=== PATIENT | female | born 1970 | race Asian ===

== ENCOUNTER → 2016-08-17 | Outpatient (CLI) | payer BC ==
[~2016-08-17] MED LIST: ALPR-411 PO; ESCI10TA17 PO; HYDR-5688 PO; METH500T37 PO
== END | disposition home or self-care (01) ==
LOC: C.PAPS 15:29
PROVIDERS: ATTEND Obstetrics & Gynecology
DX: Z01.419 Encounter for gynecological examination (general) (routine) without abnormal findings (principal)

== ENCOUNTER → 2016-09-12 | Outpatient (CLI) | payer BC ==
--- NOTE | 2016-09-12 13:03 | MAMMOGRAPHY REPORT ---
BILATERAL DIGITAL DIAGNOSTIC MAMMOGRAM TOMOSYNTHESIS WITH CAD AND TARGETED BILATERAL ULTRASOUND: 08/23 CLINICAL HISTORY: 46-year-old woman who presented with intermittent swelling and uncomfortable feeli ng of the left axilla. There is a palpable and visible lump. Family history of breast cancer = mot her. Also due for annual bilateral screening mammography. TECHNIQUE: Bilateral breast tomosynthesis in addition to standard 2D mammography was performed. Curr ent study was also evaluated with a Computer Aided Detection (CAD) system. COMPARISON: Comparison is made to exam dated: 03/19/2013 mammogram - [facility]. BREAST COMPOSITION: The tissue of both breasts is heterogeneously dense, which may obscure small ma sses. FINDINGS: A triangular skin palpable marker overlies the left axilla, denoting the visible and palpa ble tender lump pointed out by the patient. In the area of concern within the left axilla, there is glandular tissue that is mammographically normal in appearance. No obvious architectural distortio n or mass. No suspicious microcalcifications. No other suspicious mass, focal area of distortion o r microcalcifications are seen throughout the left breast. There is a questionable area of architectural distortion in the superior posterior right breast, onl y seen on the MLO tomosynthesis images (slice 40-42) , for which an additional spot compression MLO tomosynthesis image was obtained. The area of questionable distortion is still equivocal with the a dditional view and further evaluation with ultrasound was performed. No obvious mass, other area of architectural distortion or suspicious microcalcifications are seen in the right breast. Targeted ultrasound was performed in the area of swelling and uncomfortable sensation within the lef t axilla, and also throughout the superior right breast. In the area of concern, sonographically no rmal tissue is seen without a suspicious solid or cystic mass. Throughout the right superior breast , a few scattered benign anechoic simple cysts are identified, incidentally. No focal area of archi tectural distortion or suspicious solid or cystic mass is seen. IMPRESSION: ACR BI-RADS CATEGORY 0: INCOMPLETE EVALUATION: NEED ADDITIONAL IMAGING EVALUATION, TAR GETED ULTRASOUND ACR BI-RADS CATEGORY 0: INCOMPLETE EVALUATION: NEED ADDITIONAL IMAGING EVALUATION 1. The palpable swelling in the left axilla may be secondary to accessory breast tissue. No suspic ious mass, suspicious lymphadenopathy or evidence of malignancy is identified. Clinical follow-up i s recommended, as biopsy of a clinically suspicious mass should not be precluded by negative imaging . 2. There is a questionable area of architectural distortion in the superior posterior right breast, only seen on the MLO view, without suspicious sonographic correlate. Given the dense breasts and s aston family history of breast cancer, further evaluation with a breast MRI is recommended to assess for any suspicious enhancing mass in that location. These results and recommendations were discussed with the patient at the time of the exam. Approximately 10% of breast cancers are not detected with mammography. A negative mammographic repor t should not delay biopsy if a clinically suggestive mass is present. Consuelo Simental M.D. ay/:09/12/2016 12:37:37 Cutlery Grinder: Melinda Trinidad, [facility] letter sent: Addl Imaging 0 BI-RADS Code: ACR BI-RADS Category 0: Incomplete Evaluation: Need Additional Imaging Evaluation Ul trasound BI-RADS: ACR BI-RADS Category 0: Incomplete Evaluation: Need Additional Imaging Evaluation
== END | disposition home or self-care (01) ==
LOC: C.MAMM 08:15
PROVIDERS: ATTEND Obstetrics & Gynecology
DX: R22.32 Localized swelling, mass and lump, left upper limb (principal); Z80.3 Family history of malignant neoplasm of breast; R92.8 Other abnormal and inconclusive findings on diagnostic imaging of breast

== ENCOUNTER → 2016-10-04 | Outpatient (CLI) | payer BC ==
[~2016-10-04] MED LIST changes: +GADAVIST IV PRN
--- NOTE | 2016-10-05 08:20 | MAMMOGRAPHY REPORT ---
BREAST MRI OF BOTH BREASTS : 10/04/2016 CLINICAL HISTORY: Possible architectural distortion in the superior posterior right breast only seen on the MLO view, no sonographic correlate. Patient has a personal history of dense breasts and stron g family history of breast cancer. COMPARISON: Comparison is made to exams dated: 03/19/2013 mammogram, 09/12/2016 mammogram, and 017 ultrasound - [facility]. TECHNIQUE: Using a 1.5 Tania magnet and dedicated breast coil, multisequence axial images were obtain ed through the breasts. After uneventful IV administration of 6.5 mL of Gadavist, dynamic multiphase contrast-enhanced axial images, and sagittal postcontrast were obtained. Temporal subtraction axial images and 3-D MIP images are provided. Everything was then reviewed on a 3-D workstation, [employer]. FINDINGS: Right breast: There is moderate to marked background parenchymal enhancement, with numerous scattered foci of enhancement throughout the entire right breast. This limits the sensitivity for detection o f suspicious non-mass enhancement. There are a few rim-enhancing cysts. No suspicious spiculated or irregular enhancing mass, definite non-mass enhancement, focal area of architectural distortion or s uspicious kinetics are seen within the right breast. There is no skin thickening or nipple retractio n. In particular, no definite suspicious enhancement to correlate with the questionable area of arch itectural distortion seen on recent mammography, therefore this finding is considered benign, most li kevin representing normal overlapping tissue. No suspicious right axillary lymphadenopathy. Left breast: There is moderate to marked background parenchymal enhancement, with numerous scattered foci of enhancement throughout the entire left breast. This limits the sensitivity for detection of non-mass enhancement. However, 2 discrete masses are identified. The first is oval and circumscribe d in the 12:00 middle to posterior left breast (sagittal page 23/120 and axial page 61/124). This de monstrates persistent kinetics, is T2 iso-to hyperintense and there is a suggestion of nonenhancing i nternal septae. This most likely represents a fibroadenoma, however, second look ultrasound is recom mended. A second, similar appearing circumscribed enhancing mass is identified in the 8:00 middle to anterior left breast (sagittal page 33/120 and axial page 98/124). This also demonstrates a thin no nenhancing internal septum, and is T2 iso-to hyperintense. The kinetics are mixed persistent and jorge teau. This also most likely represents a benign fibroadenoma but second look ultrasound is recommend ed. No suspicious spiculated or irregular enhancing mass or definite non-mass enhancement is identif ied in the left breast. No focal area of architectural distortion or suspicious kinetics. No suspic ious left axillary lymphadenopathy. IMPRESSION: ACR BI-RADS CATEGORY 0: INCOMPLETE EVALUATION: NEED ADDITIONAL IMAGING EVALUATION 1. No suspicious enhancing mass or other suspicious finding is identified in the superior posterior right breast to correlate with the questionable architectural distortion seen mammographically. This most likely represented overlapping fibrolinear markings and is considered benign. Overall, no MRI evidence of malignancy in the right breast. 2. 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 Howeve r, targeted second look ultrasound is recommended. At the time of second look ultrasound, based on s onographic appearance, could consider serial follow-up examinations versus core needle biopsy (45 min utes). The patient will be called to schedule an appointment. Consuelo Simental M.D. ay/:10/04/2016 22:45:33 Room Attendants: aws developer, [facility] letter sent: Addl Imaging 0 BI-RADS Code: ACR BI-RADS Category 0: Incomplete Evaluation: Need Additional Imaging Evaluation
== END | disposition home or self-care (01) ==
LOC: C.MRI 11:08
PROVIDERS: ATTEND Obstetrics & Gynecology
DX: R92.2 Inconclusive mammogram (principal); N63 Unspecified lump in breast

== ENCOUNTER → 2016-10-20 | Outpatient (CLI) | payer BC ==
[~2016-10-20] MED LIST changes: -GADAVIST IV PRN
--- NOTE | 2016-10-20 14:35 | MAMMOGRAPHY REPORT ---
SECONDLOOK ULTRASOUND OF LEFT BREAST: 10/20/2016 CLINICAL HISTORY: Two left breast masses seen on recent breast MRI, for which second look ultrasound was recommended. COMPARISON: Comparison is made to exams dated: 09/12/2016 ultrasound, 09/12/2016 mammogram, and 2012 mammogram - [facility]. TECHNIQUE: Real-time targeted ultrasound of the left breast was performed. FINDINGS: Real-time, high-resolution targeted ultrasound was performed of the area of the enhancing masses seen on breast MRI, in the left 12 to 1:00 breast and left 7 to 8:00 breast. In the left 7:00 breast, 3 cm from the nipple, there is an oval circumscribed hypoechoic parallel 7 x 4 x 6 mm mass. This corresponds well with one of the enhancing circumscribed masses seen on breast MRI. In the left 1:00 breast, 3 cm from the nipple, there is a round circumscribed hypoechoic 5 x 4 x 5 mm mass, which likely represents a complicated cyst. A few other small anechoic benign cysts were also seen within the left 1:00 breast. In the left 12:30 breast, 5 cm from the nipple, there is an oval hypoechoic circumscribed parallel 7 x 4 x 6 mm mass. This is the same shape, size, and location of t he mass seen on breast MRI and likely corresponds with the enhancing circumscribed mass. In the left 12:30 breast, 3 cm from the nipple, there is an oval anechoic benign cyst measuring 6 x 9 mm. The 2 masses have MRI and ultrasound features of fibroadenomas and are probably benign. The options of short interval follow-up versus biopsy were discussed with the patient, and at this time we will o pt for short interval follow-up. As the masses are seen on ultrasound, recommend follow-up ultrasoun d in 6 months. IMPRESSION: ACR-BI-RADS CATEGORY 3: PROBABLY BENIGN - FOLLOW-UP RECOMMENDED Hypoechoic circumscribed 7 mm mass in the left breast at 7:00, and hypoechoic circumscribed 7 mm mass in the left 12:30 breast on ultrasound. The masses likely correspond with the circumscribed enhanci ng masses on MRI. The masses have MRI and ultrasound features of fibroadenomas and are probably olive gn. Recommend follow-up ultrasound of the left breast in 6 months to confirm stability. The patient was verbally notified of the results. Sigrid Arshad M.D. ah/:10/20/2016 08:32:25 Health Counselor: Melinda Trinidad, [facility] letter sent: Follow Up Recommended 3 BI-RADS Code: ACR-BI-RADS Category 3: Probably Benign
== END | disposition home or self-care (01) ==
LOC: C.MAMM 07:57
PROVIDERS: ATTEND Obstetrics & Gynecology
DX: D48.62 Neoplasm of uncertain behavior of left breast (principal)

== ENCOUNTER → 2017-04-27 | Outpatient (CLI) | payer OTHER ==
[~2017-04-27] MED LIST changes: +ANT25 PO; +METH-445 PO; -METH500T37 PO; +SPIR50TA5 PO; +TRET15GE TOP
--- NOTE | 2017-04-27 12:46 | MAMMOGRAPHY REPORT ---
ULTRASOUND OF LEFT BREAST: 04/27/2017 CLINICAL HISTORY: Six-month follow-up of left breast masses which were felt to correspond with enhanc ing masses on prior breast MRI. COMPARISON: Comparison is made to exams dated: 10/20/2016 ultrasound, 10/04/2016 breast MRI, 09/12/2016 ultrasound, 09/12/2016 mammogram, and 03/19/2013 mammogram - [facility]. TECHNIQUE: Real-time targeted ultrasound of the left breast was performed. FINDINGS: Real-time, high resolution targeted ultrasound was performed of the area of the previously seen left breast masses for which follow-up was recommended. In the left breast at 7:00, 3 cm from the nipple, again noted is a hypoechoic solid mass which measures 6 x 3 x 5 mm. The mass is stable t o decreased in size compared to the September 2016 exam where the mass measured 7 x 4 x 6 mm. This is fel t to correspond with one of the enhancing masses seen on breast MRI and is probably benign. In the left breast at 1:00, 3 cm from the nipple, there is a circumscribed hypoechoic parallel mass w hich measures 8 x 4 the 8 mm. This appears stable in size and appearance compared to the September 2016 e xam where the mass measured 9 x 6 mm (previously labeled left 12:30, 3 cm from the nipple); the mass is probably benign and may represent a complicated cyst versus fibroadenoma. In the left breast at 1 :00, 4 cm from the nipple, there is a round circumscribed anechoic mass with posterior acoustic enhan cement measuring 4 x 4 mm, which likely represents a simple cyst. In the left breast at 12:30, 5 cm from the nipple, there is an oval circumscribed parallel hypoechoic 7 x 5 mm mass, which is stable in size and appearance compared to the September 2016 exam, previously measuring 7 x 4 x 6 mm; this is proba enrrique benign and likely represents a fibroadenoma. An adjacent possible round circumscribed hypoechoic 5 x 4 mm mass is seen immediately adjacent to this mass which is newly visualized and is also probab ly benign and may represent a fibroadenoma versus complicated cyst. One of these masses, likely the mass in the left 12:30 breast, 5 cm from the nipple, likely corresponds with the enhancing mass seen on breast MRI and likely represents a fibroadenoma. IMPRESSION: ACR-BI-RADS CATEGORY 3: PROBABLY BENIGN - FOLLOW-UP RECOMMENDED Hypoechoic circumscribed masses in the left 7 and 12:30 to 1:00 breast are not significantly changed and are probably benign and likely represent fibroadenomas and/or complicated cysts. Two of the karthik s are felt to correspond with enhancing masses seen on a prior breast MRI which had MRI features of f ibroadenomas. Recommend another follow-up targeted ultrasound of the left breast in 6 months to conf irm longer stability. Routine annual mammography will be due at that time. The patient was verbally notified of the results. Sigrid Arshad M.D. ah/:04/27/2017 08:56:19 Measuring Machine Tender: Jessy HAN)(Ovi), [facility] letter sent: Follow Up Recommended 3 BI-RADS Code: ACR-BI-RADS Category 3: Probably Benign
== END | disposition home or self-care (01) ==
LOC: C.MAMM 07:56
PROVIDERS: ATTEND Obstetrics & Gynecology
DX: N63.20 Unspecified lump in the left breast, unspecified quadrant (principal)

== ENCOUNTER → 2017-05-29 | Outpatient (CLI) | payer OTHER ==
[~2017-05-29] MED LIST changes: -ANT25 PO; -METH-445 PO; +METH500T37 PO; -SPIR50TA5 PO; -TRET15GE TOP
== END | disposition home or self-care (01) ==
LOC: C.LABSPEC 14:48
PROVIDERS: ATTEND Obstetrics & Gynecology
DX: N89.8 Other specified noninflammatory disorders of vagina (principal)

== ENCOUNTER 2017-07-27 16:31 | Emergency (ER) | payer OTHER ==
[~2017-07-27] VITALS: Ht 167.6 cm; Wt 63.2 kg
[2017-07-27 16:57] VITALS: TEMP 36.7
[2017-07-27] MEDS ORDERED: MECLIZINE HCL 25 MG TAB PO STA (17:21)
--- NOTE | 2017-07-27 17:22 | EMERGENCY ROOM VISIT NOTE ---
History Report prepared by Pedro: David Mckeon Under the Supervision of: Dr. Jewel Rivers M.D. First contact with patient: 17:02 Chief Complaint: DIZZY Stated Complaint: DIZZINESS History of Present Illness The patient is a 46 year old female with a history of anxiety and depression who presents to the Emergency Room with complaints of persistent dizziness that began at lunch time today, several hours ago. The patient states that she was sitting down eating lung with her coworkers when her dizziness onset. She describes the dizziness as a blurriness in her vision, and a "fogginess" like she was going to pass out. She notes that she grabbed the table to brace herself incase she lost consciousness. She also felt nauseous and felt the need to vomit. The patient has had dizzy spells before, but notes they usually onset with walking or going up/down steps. She has never had dizziness onset while sitting. She denies any other symptoms including; cough, fevers, chills or headache. She has not had any unusual stressors at work or home to precipitate her symptoms. She has not experienced any falls. Source of History: patient Onset: [place] hours ago Position: head Quality: other (Fogginess) Timing: other (Persistent) Associated Symptoms: No fevers, No chills, No headache Review of Systems See HPI for pertinent positives and negatives. A total of ten systems were reviewed and were otherwise negative. Past Medical & Surgical Medical Problems: (1) Anxiety (2) Depression Family History Patient reports no known family medical history. Social History Smoking Status: Never Smoker Alcohol Use: occasionally Marital Status: single Occupation Status: employed Current/Historical Medications Scheduled Meclizine HCl (Meclizine HCl), 1 TAB PO TID Spironolactone (Aldactone), 50 MG PO BID Tretinoin (Retin-A), 1 APPLN TOP UD Scheduled PRN Alprazolam (Xanax), 0.5 MG PO DAILY PRN for Anxiety/Panic Attack Allergies Coded Allergies: Phenazopyridine (Unverified Allergy, Unknown, HIVES, 07/27/17) Sulfa Drugs (Unverified Allergy, Unknown, HIVES, 07/27/17) Replaces SULFAMETHOXAZ Sulfamethoxazole (Unverified Allergy, Unknown, HIVES, 07/27/17) Replaces SULFAMETHOXAZ Trimethoprim (Unverified Allergy, Unknown, HIVES, 07/27/17) Replaces SULFAMETHOXAZ Physical Exam Vital Signs Date Time Temp Pulse Resp B/P (MAP) Pulse Ox O2 Delivery O2 Flow Rate FiO2 07/27/17 19:40 76 15 117/80 100 07/27/17 18:15 58 16 109/52 100 Room Air 07/27/17 17:56 56 07/27/17 17:32 97 Room Air 07/27/17 16:57 36.7 64 18 115/75 100 Room Air Physical Exam GENERAL: Awake, alert, well-appearing, NAD HENT: Normocephalic, atraumatic. EYES: Normal conjunctiva. Sclera non-icteric. NECK: Supple. No nuchal rigidity. FROM. RESPIRATORY: CTAB, no rhonchi, wheezing, crackles CARDIAC: RRR, no MRG ABDOMEN: Soft, NTND, BS+ MSK: No chest wall TTP, no LE edema NEURO: CN 2-12 intact, 5/5 upper and lower extremity strength, no dysmetria, no drift, good finger to nose, no sensory deficits. Finger count grossly normal. PERRL. Dizzy with extraocular movements, no nystagmus. SKIN: No rash or jaundice noted. Medical Decision & Procedures ER Provider Diagnostic Interpretation: Radiology results as stated below per my review and radiologist interpretation: CHEST ONE VIEW PORTABLE CLINICAL HISTORY: 46 years-old Female presenting with EVALUATE WEAKNESS. TECHNIQUE: Portable upright AP view of the chest was obtained. COMPARISON: 03/19/2010. FINDINGS: Cardiomediastinal silhouette normal. Lungs and pleural spaces clear. Osseous structures normal. Upper abdomen normal. IMPRESSION: 1. No acute cardiopulmonary disease. Electronically signed by: Ruben Nath M.D. 07/27/2017 5:43 PM Dictated Date/Time: 07/27/2017 5:42 PM Laboratory Results 07/27/17 17:45 Red Blood Count 5.22, Mean Corpuscular Volume 84.1, Mean Corpuscular Hemoglobin 29.3, Mean Corpuscular Hemoglobin Concent 34.9, Mean Platelet Volume 9.3, Neutrophils (%) (Auto) 61.4, Lymphocytes (%) (Auto) 30.1, Monocytes (%) (Auto) 6.3, Eosinophils (%) (Auto) 1.3, Basophils (%) (Auto) 0.6, Neutrophils # (Auto) 4.30, Lymphocytes # (Auto) 2.11, Monocytes # (Auto) 0.44, Eosinophils # (Auto) 0.09, Basophils # (Auto) 0.04 07/27/17 17:45 Test 07/27/17 17:45 White Blood Count 7.00 K/uL (4.8-10.8) Red Blood Count 5.22 M/uL (4.2-5.4) Hemoglobin 15.3 g/dL (12.0-16.0) Hematocrit 43.9 % (37-47) Mean Corpuscular Volume 84.1 fL (80-100) Mean Corpuscular Hemoglobin 29.3 pg (25-34) Mean Corpuscular Hemoglobin Concent 34.9 g/dl (32-36) Platelet Count 249 K/uL (130-400) Mean Platelet Volume 9.3 fL (7.4-10.4) Neutrophils (%) (Auto) 61.4 % Lymphocytes (%) (Auto) 30.1 % Monocytes (%) (Auto) 6.3 % Eosinophils (%) (Auto) 1.3 % Basophils (%) (Auto) 0.6 % Neutrophils # (Auto) 4.30 K/uL (1.4-6.5) Lymphocytes # (Auto) 2.11 K/uL (1.2-3.4) Monocytes # (Auto) 0.44 K/uL (0.11-0.59) Eosinophils # (Auto) 0.09 K/uL (0-0.5) Basophils # (Auto) 0.04 K/uL (0-0.2) RDW Standard Deviation 42.0 fL (36.4-46.3) RDW Coefficient of Variation 13.7 % (11.5-14.5) Immature Granulocyte % (Auto) 0.3 % Immature Granulocyte # (Auto) 0.02 K/uL (0.00-0.02) Urine Color YELLOW Urine Appearance CLEAR (CLEAR) Urine pH 5.5 (4.5-7.5) Urine Specific [place] 1.006 (1.000-1.030) Urine Protein NEG (NEG) Urine Glucose (UA) NEG (NEG) Urine Ketones NEG (NEG) Urine Occult Blood NEG (NEG) Urine Nitrite NEG (NEG) Urine Bilirubin NEG (NEG) Urine Urobilinogen NEG (NEG) Urine Leukocyte Esterase NEG (NEG) Anion Gap 9.0 mmol/L (3-11) Est Creatinine Clear Calc Drug Dose 67.2 ml/min Estimated GFR () 79.4 Estimated GFR (Non- 68.5 BUN/Creatinine Ratio 10.7 (10-20) Calcium Level 9.6 mg/dl (8.5-10.1) Phosphorus Level 3.3 mg/dl (2.5-4.9) Magnesium Level 2.5 mg/dl (1.8-2.4) Troponin I < 0.015 ng/ml (0-0.045) Thyroid Stimulating Hormone (TSH) 2.370 uIu/ml (0.300-4.500) Laboratory results reviewed by me Medications Administered Medications (Trade) Dose Ordered Sig/Carlin Route Start Time Stop Time Status Last Admin Dose Admin Meclizine HCl (Antivert Tab) 25 mg NOW STAT PO 07/27/17 17:21 07/27/17 17:22 DC 07/27/17 17:55 25 MG ECG Per My Interpretation Indication: other (Dizziness ) Rate (beats per minute): 56 Rhythm: sinus bradycardia Findings: T-wave inversion (V2), other (Normal intervals, no other STS or TWI) ED Course 1711: The patient was evaluated in room C10. A complete history and physical exam was performed. 1720: Ordered Meclizine 25 mg PO. 1921: I reevaluated the patient. Discussed results and discharge instructions: she verbalized understanding and agreement. The patient is ready for discharge. Medical Decision The patient is a 46 year old female with a history of anxiety and depression who presents to the Emergency Room with complaints of persistent dizziness that began at lunch time today, several hours ago. Nursing notes reviewed. Ancillary studies and prior records reviewed. Differential diagnosis: Etiologies such as benign positional vertigo, dehydration, hypovolemia, anemia, tumor, infection, hypoglycemia, electrolyte abnormalities, cardiac sources, intracerebral event, toxicologic, neurologic, as well as others were entertained. Patient w/ self described "fogginess" but w/o MCKEON, fevers, chills, CP, SOB. Patient does states she may be dizzy. No blood thinners. No recent falls. Non focal neuro exam. No nystagmus or visual deficits. Blood work, EKG, CXR completed. No overt arrythmia seen. Blood work unremarkable. CXR clear. Patient did receive meclizine. [place] improved. Believe she is safe for discharge. D/'raghu to home. Medication Reconcilliation Current Medication List: was personally reviewed by me Blood Pressure Screening Patient's blood pressure: Normal blood pressure Impression Primary Impression: Dizziness Scribe Attestation The scribe's documentation has been prepared under my direction and personally reviewed by me in its entirety. I confirm that the note above accurately reflects all work, treatment, procedures, and medical decision making performed by me. Departure Information Dispostion Home / Self-Care Prescriptions Meclizine HCl (Meclizine HCl) 25 Mg Tab 1 TAB PO TID, #12 TAB Prov: Jewel Rivers M.D. 07/27/17 Referrals Rissa Abdalla C.R.NIlianaPIliana (PCP) Patient Instructions Dizziness Fainting Poss Causes, My [facility] Additional Instructions Please return to the emergency department if you have worsening or recurrent symptoms not amenable to at-home treatment. Please call for a follow-up appointment with her primary care physician. Please take your medications as prescribed. If you have other concerns and/or complaints please feel free to also call your primary care physician's office or return the ED for further evaluation, management, and treatment. You were found to have an elevated blood pressure today (>120 sytolic or >90 diastolic). Per medicare guidelines, you need to follow up with this blood pressure screening with your Primary Care Physician (PCP). For a new PCP call [phone]. Take your medications as prescribed. If taking an antibiotic consider taking a probiotic and/or eating yogurt, but at the least, please take with food as it can cause upset stomach. If culture results are not available at discharge, if they are positive for concern of infection, you will be informed of the results as soon as they are available. If you were seen between 11pm and 7AM all radiology reads will be re-read by our in house staff. If any major discrepancies are discovered, you will be notified. You have been examined and treated today on an emergency basis only. This is not a substitute for, or an effort to provide, complete comprehensive medical care. It is impossible to recognize and treat all injuries or illnesses in a single emergency department visit. It is therefore important that you follow up closely with [facility], your PCP, and/or your specialist(s). Call as soon as possible for an appointment. Thank you for your time and consideration. I look forward to speaking with you again soon. Please don't hesitate to call us if you have any questions.
[2017-07-27 17:32] VITALS: O2SAT 97; Ht 167.6 cm; Wt 63.2 kg
[2017-07-27] MEDS ORDERED: SPIR50TA3 PO (17:39)
[2017-07-27] MEDS ORDERED: TRET15GE TOP (17:39)
--- NOTE | 2017-07-27 17:44 | DIAGNOSTIC IMAGING REPORT ---
CHEST ONE VIEW PORTABLE CLINICAL HISTORY: 46 years-old Female presenting with EVALUATE WEAKNESS. TECHNIQUE: Portable upright AP view of the chest was obtained. COMPARISON: 03/19/2010. FINDINGS: Cardiomediastinal silhouette normal. Lungs and pleural spaces clear. Osseous structures normal. Upper abdomen normal. IMPRESSION: 1. No acute cardiopulmonary disease. Electronically signed by: Ruben Nath M.D. 07/27/2017 5:43 PM Dictated Date/Time: 07/27/2017 5:42 PM
[2017-07-27 17:57] LABS: BASO % 0.6 %; BASO ABS # 0.04 K/uL (0-0.2); EOS % 1.3 %; EOS ABS # 0.09 K/uL (0-0.5); HEMATOCRIT 43.9 % (37-47); HEMOGLOBIN 15.3 g/dL (12.0-16.0); IG# 0.02 K/uL (0.00-0.02); LYMPH % 30.1 %; LYMPH ABS # 2.11 K/uL (1.2-3.4); MEAN CELL VOLUME 84.1 fL (80-100); MEAN CORPUSCULAR HEMOGLOBIN 29.3 pg (25-34); MEAN CORPUSCULAR HGB CONC 34.9 g/dl (32-36); MEAN PLATELET VOLUME 9.3 fL (7.4-10.4); MONO % 6.3 %; MONO ABS # 0.44 K/uL (0.11-0.59); NEUT % 61.4 %; PLATELET COUNT 249 K/uL (130-400); RED CELL DISTRIBUTION WIDTH CV 13.7 % (11.5-14.5)
[2017-07-27 18:26] LABS: BLOOD UREA NITROGEN 11 mg/dl (7-18); CALCIUM 9.6 mg/dl (8.5-10.1); CARBON DIOXIDE 24 mmol/L (21-32); GLUCOSE 74 mg/dl (70-99); POTASSIUM 3.6 mmol/L (3.5-5.1); SODIUM 137 mmol/L (136-145)
[2017-07-27 18:37] LABS: PHOSPHORUS 3.3 mg/dl (2.5-4.9)
[2017-07-27] MEDS ORDERED: ANT25 PO (18:51)
[2017-07-27 19:40] VITALS: BP 117/80; PULSE 76; O2SAT 100
== END 2017-07-27 19:41 | disposition home or self-care (01) ==
LOC: C.EDB 16:32 → C.EDC 19:41
DX: R42 Dizziness and giddiness (principal); F41.9 Anxiety disorder, unspecified; F32.9 Major depressive disorder, single episode, unspecified; Z88.2 Allergy status to sulfonamides; Z88.8 Allergy status to other drugs, medicaments and biological substances